=== PATIENT | male | born 1955 | race Hispanic/Latino ===

== ENCOUNTER 2020-01-10 11:04 | Inpatient (IN) | payer OTHER ==
[2020-01-10] MEDS ORDERED: Ondansetron PF 4 MG/2 ML Vial ONE (11:47)
[2020-01-10 11:50] LABS: #Lymphocytes 0.9 thou/uL (1.20-3.40); #Monocytes 0.8 thou/uL (0.11-0.59); #Neutrophils 12.4 thou/uL (1.40-6.50); %Basophils 0.1 % (0.0-1.0); %Eosinophils 0.1 % (0.0-10.0); %Lymphocytes 6.6 % (21.0-51.0); %Monocytes 5.9 % (0.0-10.0); %Neutrophils 87.3 % (42.0-75.0); Hemoglobin 15.9 g/dL (14.0-18.0); Mean Corpuscular HGB CONC 33.6 g/dL (32.0-36.0); Mean Corpuscular Hemoglobin 31.3 pg (27.0-31.0); Mean Corpuscular Volume 93.3 fL (78.0-98.0); Mean Platelet Volume 7.8 fL (7.4-10.4); Platelet Count 424 thou/uL (130-400); RBC Distribution Width 11.2 % (11.5-14.5); Red Blood Cell (RBC) Count 5.09 mill/uL (4.70-6.10); White Blood Cell (WBC) Count 14.2 thou/uL (4.8-10.8)
[2020-01-10 11:53] LABS: Bacteria/HPF None Seen HPF (None Seen); Bilirubin Negative (Negative); Blood, Urine Negative (Negative); Clarity Clear (Clear); Glucose, Urine (Dipstick) Normal (Negative); Ketone, Urine 150 mg/dL (Negative); Leukocyte Negative Leu/uL (Negative); Nitrite Negative (Negative); Protein, Urine (Dipstick) 50 mg/dL (Neg-Trace); RBC/HPF 0-3 HPF (0-3); Specific Gravity, Urine 1.031 (1.002-1.036); Squamous Epithelial 0-3 HPF (0-3); Urobilinogen 6 mg/dL (Less than 2)
[2020-01-10 12:07] LABS: ALT (SGPT) 20 U/L (8-55); AST (SGOT) 18 U/L (5-34); Albumin 4.8 g/dL (3.4-4.8); Alkaline Phosphatase 131 U/L (40-110); Anion Gap 19 mmol/L (10-20); BUN (Urea Nitrogen) 13 mg/dL (8.4-25.7); Calc. Creatinine Clearance 0 mL/min (70-130); Calcium 10.3 mg/dL (7.8-10.44); Carbon Dioxide 29 mmol/L (23-31); Chloride 100 mmol/L (98-107); Estimated GFR-MDRD 90; Globulin 3.8 g/dL (2.4-3.5); Glucose 132 mg/dL (80-115); Potassium 3.9 mmol/L (3.5-5.1); Protein, Total 8.6 g/dL (5.8-8.1); Sodium 144 mmol/L (136-145)
--- NOTE | 2020-01-10 13:35 | CT ---
CT ABDOMEN AND PELVIS WITH IV CONTRAST 01/10/2020 CLINICAL INFORMATION: Abdominal pain with nausea, vomiting, and diarrhea. Symptoms of been present for 2 weeks. COMPARISON: None. Technique: Multiple contiguous axial CT images are obtained through the abdomen and pelvis with IV contrast. Cor onal reformatted images are provided. FINDINGS: Lower Chest: Lung bases are clear. Vessels: Vascular calcifications in the abdominal aorta and iliac arteries. Abdomen: Portal vein:Patent Gallbladder: Suggestion of subtle creased density foci within the gallbladder neck which could be rel ated to sludge and/or gallbladder calculi. Liver: within normal limits. Spleen: Multiple splenic granulomata. Pancreas: within normal limits. Adrenals: within normal limits. Kidneys: A 1.7 cm fluid attenuation cystic lesion is seen inferior pole right kidney most compatible with a cyst. Kidneys otherwise demonstrate a normal CT appearance bilaterally. Bowel: There is colonic diverticulosis with short segment area of wall thickening involving the sigmo id colon with adjacent pericolonic inflammatory changes compatible with diverticulitis. There are adjacent multiple foci of free intraperitoneal gas seen in the region of the inflammatory changes sug gesting microperforation. There is no fluid collection seen to suggest an abscess. Loops of small bowel are normal in caliber. Small hiatal hernia is present. Appendix: The appendix is visualized and normal in caliber. Peritoneum: Free intraperitoneal foci of gas are seen adjacent to sigmoid colon. Minimal amount of fl uid is seen in the pelvis. Mesentery and Retroperitoneum: No enlarged mesenteric or retroperitoneal lymph nodes. Abdominal Wall: within normal limits. Pelvis: Reproductive Organs: Prostate gland is enlarged in transverse dimensions measuring 5.4 cm. Bladder: within normal limits. Bones: Degenerative changes in the spine. IMPRESSION: 1. Colonic diverticulitis with evidence of microperforation. No fluid collection is seen to suggest a bscess formation at this time. Follow-up evaluation is recommended to ensure resolution of bowel wall thickening involving the sigmoid colon. 2. Right renal cyst. 3. Small hiatal hernia. 4. Above findings discussed Dr. Lindsay in the emergency department on 01/10/2020 at 1331 hours.
[2020-01-10] MEDS ORDERED: metroNIDAZOLE 500 MG in Premix Bag 1 BAG IVPB SCH ×2 (14:00→22:00)
[2020-01-10] MEDS ORDERED: Iopamidol-370 76% 500 ML 1 ML ONE (15:27)
[2020-01-10] MEDS ORDERED: HYDROcodone/Acetaminophen 5/325 mg Tablet PO PRN ×2 (17:00)
[2020-01-10] MEDS ORDERED: Acetaminophen 325 MG TAB PO PRN (17:00)
[2020-01-10] MEDS ORDERED: Ondansetron ODT 4 MG TAB PO PRN (17:00)
[2020-01-10] MEDS ORDERED: Guaifenesin DM 100-10/5 ML UDCUP PO PRN (17:00)
[2020-01-10] MEDS ORDERED: Acetaminophen 650 MG Suppository PR PRN (17:00)
[2020-01-10] MEDS ORDERED: Senokot S 8.6-50 MG TAB PO PRN (17:00)
--- NOTE | 2020-01-10 17:12 | HP ---
PRIMARY CARE PHYSICIAN: [facility] in [place]. CHIEF COMPLAINT: Abdominal pain with nausea, vomiting, diarrhea. HISTORY OF PRESENT ILLNESS: This is a 64-year-old male without significant past medical history except for diverticulosis diagnosed on a previous colonoscopy, who presented to the emergency department complaining of some abdominal discomfort for the past month and then 2 weeks of worsening nausea, vomiting, diarrhea, and lower abdominal pain. The patient reports that any time he eats, he has episodes of nausea and vomiting, and he will have diarrhea. The diarrhea is usually not more than 2 or 3 times per day, small amount. Does have mucus in it, but no blood. Sometimes is more firm than others. He denies any fevers. No blood in the vomit. Yesterday, his vomiting got severely worse. He vomited more times than he could count and so today he came into the emergency room. In the ER, the patient had a CT scan done of the abdomen, which showed colonic diverticulitis with evidence of microperforation. No evidence of abscess formation. He was given oral Levaquin and metronidazole. Dr. Magaña, General Surgery was consulted by the ER doctor and the patient is being admitted to the hospital. REVIEW OF SYSTEMS: CONSTITUTIONAL: No fevers. No chills. EYES: No double vision or blurred vision. ENT: No congestion, drainage, or sore throat. He does have some burning in his throat though from the repetitive vomiting acid in the back of his throat. CARDIOVASCULAR: No chest pain. No palpitations or racing heart. PULMONARY: No coughing, wheezing, or shortness of breath. GASTROINTESTINAL: See HPI. GENITOURINARY: No current dysuria or hematuria. He did have a couple of episodes over the last 2 weeks of pain in his rectum when he would try and pee that has since resolved. He has noted some dark urine today. MUSCULOSKELETAL: No new muscle aches or joint pains. He does have some chronic low back pain. SKIN: No rashes or lesions noted. NEUROLOGIC: No numbness, tingling, or focal weakness. PAST MEDICAL HISTORY: None. PAST SURGICAL HISTORY: 1. Colonoscopy x2 with some polypectomies. 2. Umbilical hernia repair with mesh placement. 3. Surgical removal of a boil off his low back, upper buttock. SOCIAL HISTORY: The patient denies tobacco or alcohol use for the last 20 years. He did use to smoke and drink before that. He does report smoking a joint of marijuana about once every two weeks. The patient is and lives with his . He is a full code. Should he be incapacitated, his Edith Santana would be his medical decision maker. FAMILY HISTORY: Multiple family members of colon cancer. ALLERGIES: NO KNOWN DRUG ALLERGIES. CURRENT MEDICATIONS: None. PHYSICAL EXAMINATION: VITAL SIGNS: Blood pressure 116/59, pulse 87, respirations 16, temperature 98.3, O2 saturation 98% on room air. GENERAL: This is a well-developed obese, overweight male, in no acute distress. HEENT: Pupils are equal, round, and reactive to light. Oropharynx clear without lesions, erythema, or exudate. NECK: Supple. No lymphadenopathy. No thyroid nodules or enlargement. No JVD. HEART: Regular rate and rhythm. No murmurs, rubs, or gallops. LUNGS: Clear to auscultation bilaterally. No wheezes, crackles, or rhonchi. ABDOMEN: Soft, nontender to palpation currently. No hepatosplenomegaly. No other masses. No guarding or rebound tenderness. Normoactive bowel sounds. EXTREMITIES: No clubbing, cyanosis, or edema. SKIN: No rashes or lesions noted. NEUROLOGIC: The patient moves all extremities equally. No facial droop. PSYCHIATRIC: Alert and oriented x3. Normal mood and affect. LABORATORY DATA: White blood cell count 14,000 with 87% neutrophils, the rest of the CBC is normal except for platelet count of 424. Complete metabolic panel is notable for glucose of 132, alkaline phosphatase of 131, total protein of 8.6. The rest is normal. Lipase was negative. Troponin was negative. Urinalysis showed some ketones, 4 to 6 white blood cells, no bacteria. CT of the abdomen and pelvis done in the emergency room with IV contrast did show colonic diverticulitis with evidence of microperforation, but abscess of the right renal cyst, a small hiatal hernia. EKG done in the emergency room showed initially sinus tachycardia 105 beats per minute with premature atrial complexes, but no other significant abnormalities. ASSESSMENT: 1. Diverticulitis with microperforation. The patient is being given Levaquin and metronidazole. He is not currently n.p.o. for surgery as he will likely hopefully respond to IV antibiotic therapy. Dr. Magaña is following along with his case. We will admit him to the hospital and watch for improvement. 2. Persistent nausea and vomiting. We will give Zofran as needed. 3. Gastrointestinal prophylaxis. The patient is on Pepcid twice a day. 4. Deep venous thrombosis prophylaxis. We will put the patient on Lovenox while he is in the hospital. 5. Code status: The patient is a full code. Should he be incapacitated, his , Edith Santana will be his medical decision maker. Job ID: [id number]
[2020-01-10] MEDS: Sodium Chloride 0.9% 1,000 ML IV SCH (17:17)
--- NOTE | 2020-01-10 20:03 | PDOC.CONS ---
- Consultation Encounter Date: 01/10/20 Encounter Time: 19:56 Indication for consultation-diverticulitis with microperforation Chief complaint-I have not felt good for a week History of present illness the patient is a 54-year-old male who has been feeling ill with lower abdominal pain for the past week. He has never had pain like this before. The pain is situated in the lower abdomen slightly to the left-hand side. Can get up to 9 out of 10. It is constant and worse with retching/vomiting. Patient states that the pain became its worse yesterday. He believes that this was because he started vomiting and increased abdominal pressure made his pain worse. Currently, he major concern is the burning sensation in his throat from vomiting. He has been passing flatus. Has had some diarrhea for the last week or so. These are small amounts without blood. Patient stated he has a history of colonoscopy, last one approximately 10 years ago. There were polyps found at the time. Past medical history-denies Past surgical history-colonoscopy x2, umbilical hernia repair with mesh, incision and drainage of back abscess Allergies-none Medications-none Family history-multiple members with colon cancer Review of systems-negative for 10 system, two-point per system other than HPI [id number], appears uncomfortable in bed Head-[normocephalic, atraumatic] HEENT- [EOMI], [PERRLA] Neck-[trachea midline, supple] Lungs-[grossly clear to auscultation], [normal air movement] Heart-[regular regular], [no murmurs] Abdomen-[soft], [nondistended], [nontender], [normal active bowel sounds], some discomfort to deep palpation in the lower pelvis Musculosketal-[full range of motion], [no gross deformity] Psychiatric-[good insight, good judgment] Skin-[good turgor, no jaundice] Neuro- [GCS 15], [CN II-XII intact] Blood pressure 116/59, heart rate 87, temperature 98.3 White blood cell count-14, neutrophils 87% CT scan abdomen and pelvis-independently viewed the images, I read the radiologist interpretation, patient has a segment of colon generally in the lower abdomen that has some stranding around it with a few small blips of air. There is no evidence of abscess. Assessment-diverticulitis with microperforation-the patient has been started on Levaquin and Flagyl. His vital signs are still within the normal limits. His abdomen is soft on exam. At this point, I think continue with conservative management is prudent. For now, n.p.o. in order to decrease bulk through the c olon. Continue with IV fluid resuscitation. Continue with antibiotics. Check CBC in the morning. #2-nausea and vomiting-I think this is more likely a reaction to the inflammatory process within his abdomen. He is on Zofran. I will give him a GI cocktail and an effort to help him with the burning sensation from recent vomiting. This should resolve with time. Plan-conservative management per above. I discussed the next several days with him. Hopefully, we will be able to continue with conservative management and transition him to p.o. antibiotics in the next 24 to 48 hours. If not, we discussed to the different pathways to include re-CT scan to evaluate for abscess versus need to proceed to the operating room for a resection. Patient voices understanding.
[2020-01-10] MEDS: Ondansetron PF 4 MG/2 ML Vial IVP PRN (20:05)
[2020-01-10] MEDS ORDERED: FLU VACC QS2020-21(6MOS UP)/PF 60 MCG/0.5 ML SYRINGE IM ONE (21:00)
[2020-01-10] MEDS: Lidocaine 2% Viscous Solution 10 ML, Aluminum & Magnesium Hydroxide 30 ML SSW PRN (21:28)
[2020-01-10] MEDS: Famotidine 20 MG TAB PO SCH (21:29)
[2020-01-11] MEDS: metroNIDAZOLE 500 MG in Premix Bag 1 BAG IVPB SCH ×2 (00:54→08:13)
[2020-01-11 05:55] LABS: #Lymphocytes 0.8 thou/uL (1.20-3.40); #Monocytes 0.7 thou/uL (0.11-0.59); %Basophils 0.1 % (0.0-1.0); %Eosinophils 0.1 % (0.0-10.0); %Lymphocytes 7.8 % (21.0-51.0); %Monocytes 7.1 % (0.0-10.0); %Neutrophils 84.9 % (42.0-75.0); Hemoglobin 13.5 g/dL (14.0-18.0); Mean Corpuscular HGB CONC 33.5 g/dL (32.0-36.0); Mean Corpuscular Hemoglobin 31.8 pg (27.0-31.0); Mean Corpuscular Volume 94.9 fL (78.0-98.0); Mean Platelet Volume 7.8 fL (7.4-10.4); Platelet Count 280 thou/uL (130-400); RBC Distribution Width 11.1 % (11.5-14.5); Red Blood Cell (RBC) Count 4.25 mill/uL (4.70-6.10); White Blood Cell (WBC) Count 10.5 thou/uL (4.8-10.8)
[2020-01-11 06:08] LABS: Anion Gap 14 mmol/L (10-20); BUN (Urea Nitrogen) 10 mg/dL (8.4-25.7); Calc. Creatinine Clearance 104 mL/min (70-130); Calcium 8.9 mg/dL (7.8-10.44); Carbon Dioxide 26 mmol/L (23-31); Chloride 106 mmol/L (98-107); Estimated GFR-MDRD Greater than 90; Glucose 119 mg/dL (80-115); Potassium 3.8 mmol/L (3.5-5.1); Sodium 142 mmol/L (136-145)
[2020-01-11] MEDS: Sodium Chloride 0.9% 1,000 ML IV SCH ×3 (07:09→23:26)
[2020-01-11] MEDS: Famotidine 20 MG TAB PO SCH ×2 (08:13→20:19)
[2020-01-11] MEDS: Enoxaparin Sodium 40 MG/0.4 ML SYRINGE SC SCH (08:13)
[2020-01-11 09:27] VITALS: BMI 24.7
--- NOTE | 2020-01-11 11:49 | PDOC.GSPN ---
Surgery Progress Note: Subj - Subjective Narrative: Patient is hospital day 2 for diverticulitis with microperforation Chief complaint-I feel so much better today History of present illness-patient states that his abdominal pain has basically resolved. Originally, most of his concern was about reflux related discomfort. He was given a GI cocktail and this has resolved the issue. He continues to pass flatus. Ambulating around the room without difficulty. Hungry and thirsty. Review of systems-negative for 10 system, two-point per system other than HPI Surgery Progress Note: Obj - Vital signs Vital signs: Vital Signs - Most Recent Temp Pulse Resp BP Pulse Ox 98.8 F 69 16 128/79 98 01/11/20 08:12 01/11/20 08:12 01/11/20 08:12 01/11/20 08:12 01/11/20 08:12 - Physical Exam Additional exam: General-[no acute distress, well-nourished] Head-[normocephalic, atraumatic] HEENT- [EOMI], [PERRLA] Neck-[trachea midline, supple] Lungs-[grossly clear to auscultation], [normal air movement] Heart-[regular regular], [no murmurs] Abdomen-[soft], [nondistended], [nontender], [normal active bowel sounds] Musculosketal-[full range of motion], [no gross deformity] Psychiatric-[good insight, good judgment] Skin-[good turgor, no jaundice] Neuro- [GCS 15], [CN II-XII intact] Surgery Progress Note: Results - Labs Result Diagrams: 01/11/20 05:26 01/11/20 05:26 Lab results: Laboratory Results - last 12 hr 01/11/20 01/11/20 05:26 05:26 WBC 10.5 RBC 4.25 L Hgb 13.5 L Hct 40.4 L MCV 94.9 MCH 31.8 H MCHC 33.5 RDW 11.1 L Plt Count 280 MPV 7.8 Neutrophils % 84.9 H Lymphocytes % 7.8 L Monocytes % 7.1 Eosinophils % 0.1 Basophils % 0.1 Neutrophils # 9.0 H Lymphocytes # 0.8 L Monocytes # 0.7 H Eosinophils # 0.0 Basophils # 0.0 Sodium 142 Potassium 3.8 Chloride 106 Carbon Dioxide 26 Anion Gap 14 BUN 10 Creatinine 0.72 Estimated GFR (MDRD) Greater than 90 Glucose 119 H Calcium 8.9 Surgery Progress Note: A/P - Problem (1) Diverticulitis of colon with perforation Current Visit: Yes Code(s): K57.20 - DVTRCLI OF LG INT W PERFORATION AND ABSCESS W/O BLEEDING Status: Acute Assessment and Plan: Patient has been on Levaquin and Flagyl as well as remained n.p.o. overnight. He is doing well. His white blood cell count is normal. His vital signs are normal. His exam is reassuring. At this point, I will transition him over to p.o. antibiotics and start him on a clear liquid diet. Recheck CBC tomorrow morning. If he continues to do well, he may be discharged tomorrow on Flagyl and Levaquin. I discussed with him and his the concept of remaining on a low residual diet for the meantime. Eventually, after he sees me back in clinic, we can increase this to a high-fiber diet. His last colonoscopy was over 10 years ago, so he will need 1 of those. I can perform that in 6 weeks after his colon has had time to recover.
[2020-01-11 12:02] LABS: SARS-CoV-2 MS2 Positive; SARS-CoV-2 N Gene Negative; SARS-CoV-2 S Gene Negative; SARS-CoV-2 by NAA Not Detected (NotDetected); SARS-CoV-2 orf1ab Negative
[2020-01-11] MEDS: Ondansetron PF 4 MG/2 ML Vial IVP PRN (14:18)
[2020-01-11] MEDS: metroNIDAZOLE 500 MG TAB PO SCH ×2 (14:18→20:19)
--- NOTE | 2020-01-11 18:06 | PDOC.HOSPP ---
- Subjective Encounter Date: 01/11/20 Encounter Time: 12:00 Subjective: The patient had stated his abdominal pain had resolved this morning. He did not want to eat anything however, but agreed to try clear liquids. He drank juice and stated it made him nauseous, does not want to advance furt her. He is passing gas - Objective Vital Signs & Weight: Vital Signs (12 hours) Temp Pulse Resp BP Pulse Ox 01/11/20 18:03 98.8 F 109 H 18 145/87 H 97 01/11/20 13:13 97.4 F L 95 18 127/74 97 01/11/20 08:12 98.8 F 69 16 128/79 98 01/11/20 08:00 98 Weight Admit Weight 153 lb 14.112 oz Weight 162 lb 11.2 oz I&O: 01/10/20 01/11/20 01/12/20 06:59 06:59 06:59 Intake Total 1000 Balance 1000 Result Diagrams: 01/11/20 05:26 01/11/20 05:26 Hospitalist ROS - Review of Systems Constitutional: denies: fever, chills - Medication Medications: Active Medications Generic Name Dose Route Start Last Admin Trade Name Freq PRN Reason Stop Dose Admin Lidocaine HCl 10 ml/ Al 0 ml 01/10/20 19:55 01/10/20 21:28 Hydroxide/Mg Hydroxide 30 ml SSW 1 dose Q6H PRN Administration .REFLUX Enoxaparin Sodium 40 mg 01/11/20 09:00 01/11/20 08:13 Enoxaparin Sodium 40 Mg/0.4 Ml Syringe SC 40 mg 0900 ARSLAN Administration Famotidine 20 mg 01/10/20 21:00 01/11/20 08:13 Famotidine 20 Mg Tab PO 20 mg BID ARSLAN Administration Sodium Chloride 1,000 mls @ 75 mls/hr 01/10/20 17:00 01/11/20 08:14 Normal Saline 0.9% IV 1,000 mls .[id number] ARSLAN Administration Metronidazole 500 mg 01/11/20 15:00 01/11/20 14:18 Metronidazole 500 Mg Tab PO 500 mg TID ARSLAN Administration Ondansetron HCl 4 mg 01/10/20 17:00 01/11/20 14:18 Ondansetron Pf 4 Mg/2 Ml Vial IVP 4 mg Q6H PRN Administration Nausea/Vomiting - Exam General Appearance: NAD, awake alert Eye: PERRL, anicteric sclera ENT: normocephalic atraumatic, no oropharyngeal lesions Neck: no JVD Heart: RRR, no murmur, no gallops, no rubs Respiratory: CTAB, no wheezes, no rales, no ronchi Gastrointestinal: soft, non-distended, normal bowel sounds Gastrointestinal - other findings: mild tenderness in lower quadrants Extremities: no cyanosis, no clubbing, no edema Skin: normal turgor, no lesions, no rashes Neurological: cranial nerve grossly intact, normal sensation to touch, no focal deficits, no new deficit Hosp A/P - Plan CT abdomen: colonic diverticulitis with microperforation This is a 64 year old male who presented with abdominal pain, admitted for diverticulitis Diverticulitis - on IV levaquin and flagyl. Will continue for now. Advanced to clear liquid, did not tolerate it that well Mild elevated ALP - noted to be 131. Will recheck tomorrow Anemia - Hb 13.5, will monitor Leukocytosis - from diverticulitis - resolved. continue Iv antibiotics
[2020-01-11] MEDS: Lidocaine 2% Viscous Solution 10 ML, Aluminum & Magnesium Hydroxide 30 ML SSW PRN (20:20)
[2020-01-12] MEDS: Enoxaparin Sodium 40 MG/0.4 ML SYRINGE SC SCH (07:52)
[2020-01-12] MEDS: metroNIDAZOLE 500 MG TAB PO SCH ×2 (07:52→13:53)
[2020-01-12] MEDS: Famotidine 20 MG TAB PO SCH (07:52)
[2020-01-12] MEDS: Sodium Chloride 0.9% 1,000 ML IV SCH (07:52)
[2020-01-12] MEDS ORDERED: FLU VACC QS2020-21(6MOS UP)/PF 60 MCG/0.5 ML SYRINGE IM ONE (10:30)
[2020-01-12 14:52] LABS: ALT (SGPT) 19 U/L (8-55); AST (SGOT) 18 U/L (5-34); Albumin 3.8 g/dL (3.4-4.8); Alkaline Phosphatase 97 U/L (40-110); Bilirubin, Direct 0.4 mg/dL (0.1-0.3); Bilirubin, Total 0.7 mg/dL (0.2-1.2); Protein, Total 6.5 g/dL (5.8-8.1)
--- NOTE | 2020-01-12 15:05 | DIS ---
DATE OF ADMISSION: 01/10/2020 DATE OF DISCHARGE: 01/12/2020 DISCHARGE DIAGNOSES: 1. Diverticulitis with microperforation. 2. Right renal cyst. 3. Small hiatal hernia. 4. Leukocytosis. 5. Anemia, likely dilutional. 6. Elevated alkaline phosphatase. CONSULTATIONS: Dr. Chinedu Magaña with general surgery BRIEF HISTORY OF PRESENT ILLNESS: This is a 64-year-old male with no past medical history, who presented to the emergency room with abdominal discomfort for 2 weeks with nausea, vomiting, diarrhea. His vomiting was so severe that he came to the emergency room. The patient had a CAT scan, which showed colonic diverticulitis with evidence of microperforation. General Surgery was consulted. The patient was admitted to the hospital. HOSPITAL COURSE: 1. Acute diverticulitis with microperforation: The patient was initially started on IV Levaquin and Flagyl. His abdominal pain resolved. On 01/10, he was advanced to a clear liquid diet, however, had nausea with this. Therefore, he was monitored for one more day. On 01/11, he was switched to oral antibiotics and he tolerated a regular diet at the time of discharge. He denied any diarrhea. He will be discharged and was advised to follow up in [address] Magaña. He can be increased to a high-fiber diet at that time. The patient states his last colonoscopy was over 10 years ago and needs a repeat colonoscopy after this acute episode has resolved. 2. Anemia: The patient presented with hemoglobin 15.9, which decreased to 13.5. This may have been secondary to IV fluids. Please consider repeat CBC as an outpatient. 3. Transaminitis: The patient had an elevated alkaline phosphatase of 131. CT scan of the abdomen showed sludge versus gallbladder calculi. He did not have any right upper quadrant tenderness. Repeat LFTs on the day of discharge were normal. The patient tolerated a low-fiber diet at the time of discharge. Consider further workup as an outpatient. DISCHARGE PHYSICAL EXAMINATION: VITAL SIGNS: Temperature 98.4, heart rate of 68, respiratory rate 16, O2 saturation 96% on room air, and blood pressure 110/68. GENERAL: The patient is alert, awake, and oriented x3. CVS: Regular rate and rhythm with no murmurs, rubs, or gallops. LUNGS: Clear to auscultation bilaterally. ABDOMEN: Positive bowel sounds. Soft, nontender, and nondistended. EXTREMITIES: No edema. PERTINENT LABORATORY DATA: CBC on 01/10: White count 10.5, hemoglobin 13.5, hematocrit 40.4, and platelet count 280. BMP on 01/10: Normal. LFTs on 01/09: AST 18, ALT 20, ALP 131. LFTs on 01/11: Pending. UA on 01/09: 50 protein, 150 ketones, 6 urobilinogen, 4 to 6 white blood cells. COVID PCR on 01/09: Negative. IMAGING: CT abdomen and pelvis on 01/09: Colonic diverticulitis with evidence of microperforation. No abscess. Right renal cyst. Small hiatal hernia. DISCHARGE CONDITION: Stable. ACTIVITY: As tolerated. DIET: A low-fiber diet. DISCHARGE MEDICATIONS: 1. Flagyl 500 mg p.o. t.i.d. 2. Levaquin 750 mg p.o. daily. DISCHARGE INSTRUCTIONS: The patient is to follow up with his PCP in a week and get a repeat CBC to further evaluate resolution of anemia. Follow up with Dr. Magaña in 10 days and you can increase to a high-fiber diet at that time. Job ID: [id number] [facility]
[2020-01-12 15:38] VITALS: BP 121/73; TEMP 97.9
--- NOTE | 2020-01-12 16:58 | PDOC.GSPN ---
Surgery Progress Note: Subj - Subjective Narrative: Chief complaint-I feel better today History of present illness-patient states that his abdomen is pain-free. He is tolerating his diet without any difficulty. His reflux has improved. No nausea. Review of systems-no fevers or chills. Still having some loose stool. Passing flatus. Otherwise, 10 system, two-point per system negative other than HPI Surgery Progress Note: Obj - Vital signs Vital signs: Vital Signs - Most Recent Temp Pulse Resp BP Pulse Ox 97.9 F 80 20 121/73 98 01/12/20 15:38 01/12/20 15:38 01/12/20 15:38 01/12/20 15:38 01/12/20 15:38 - Physical Exam Additional exam: General-[no acute distress, well-nourished] Head-[normocephalic, atraumatic] HEENT- [EOMI], [PERRLA] Neck-[trachea midline, supple] Lungs-[grossly clear to auscultation], [normal air movement] Heart-[regular regular], [no murmurs] Abdomen-[soft], [nondistended], [nontender], [normal active bowel sounds] Musculosketal-[full range of motion], [no gross deformity] Psychiatric-[good insight, good judgment] Skin-[good turgor, no jaundice] Neuro- [GCS 15], [CN II-XII intact] Surgery Progress Note: Results - Labs Result Diagrams: 01/11/20 05:26 01/11/20 05:26 Lab results: Laboratory Results - last 12 hr 01/12/20 05:26 Total Bilirubin 0.7 Direct Bilirubin 0.4 H AST 18 ALT 19 Alkaline Phosphatase 97 Serum Total Protein 6.5 Albumin 3.8 Surgery Progress Note: A/P - Problem (1) Diverticulitis of colon with perforation Code(s): K57.20 - DVTRCLI OF LG INT W PERFORATION AND ABSCESS W/O BLEEDING Status: Acute Assessment and Plan: Patient is doing well with conservative management. He is remained afebrile on oral antibiotics. He is pain-free. His exam is encouraging. He has my business card and should follow-up with me in 2 weeks. Low residual diet for right now. I explained to him and his what this means. He should be sent home with Levaquin and Rosa. He may return to my clinic if he is having any difficulties
--- NOTE | 2020-01-15 06:44 | PQF ---
CLINICAL DOCUMENTATION CLARIFICATION FORM: Dear : Jayleen Woods Date / Time: 01/15/2020 0643 Please exercise your independent, professional judgment in responding to the clarification form. Clinical indicators are provided on the bottom of this form for your review Please check appropriate box(es): [ ] Protein Calorie Malnutrition: [ ] Mild [ ] Moderate [ X] Severe [ ] Other Malnutrition (please specify) [ ] Underweight without malnutrition [ ] Cachexia [ ] Other diagnosis [ ] Unable to determine In addition, please specify: Present on Admission (POA): [ X ] Yes [ ] No [ ] Unable to determine Physician Signature: Date/Time: For continuity of documentation, please document condition throughout progress notes and discharge summary. Thank You. To be completed by CDI/Coding staff for physician review: Present Clinical Indicators - Signs / Symptoms / Labs Results and Location in Medical Record [X] BP 146/73, Pulse 89, Resp 18, Temp 98.7 Vital signs 12/30 [X] Serum Evelyn protein 8.6, Albumin 4.8, Globulin 3.8, Ratio 1.3 Laboratory 12/30 [X] BMI of 24.7 Nutritional assessment Dietitian Hayden 01/10 [X] Weight loss Nutritional assessment Dietitian Hayden 01/10 [X] Persistent nause, vomiting and diarrhea Nutritional assessment Dietitian Hayden 01/10 [X] <50% energy intake compared to estimated energy needs for > 5 days with 16.8% wieght loss over the past 1 month, suggestive of severe malnutrition in the context of acute illness Nutritional assessment Dietitian Hayden 01/10 Present Risk Factors Results and Location in Medical Record [X] 64 year-old Male H&P p1 01/09 Dr Jeff [X] Former smoker H&P p1 01/09 Dr Jeff [X] Diveticulitis with microperforation H&P p1 01/09 Dr Jeff [X] Anemia H&P p1 01/09 Dr Jeff [X] Hiatal Hernia DS 01/11 Present Treatments Results and Location in Medical Record [X] Dietary consult Nutritional assessment Dietitian Hayden 01/10 [X] Nutritional supplements Nutritional assessment Dietitian Blake 01/10 [X] Weight monitoring Nutritional assessment Dietitian Blake 01/10 [X] Oral intake monitoring Nutritional assessment Dietitian Blake 01/10 [X] Appetite stimulant - medication Nutritional assessment Dietitian Blake 01/10 CDS/Mission Support Specialist Signature: Doreen Panico Phone #: [phone] Date/Time: 01/15/2020 0643 Moderate Malnutrition (in acute illness) ? Energy Intake: <75% of estimated energy requirement for > 7 days ? Weight Loss: 1-2%/1 week; 5%/ 1 month; 7.5%/3 months ? Other: mild body fat loss; mild muscle mass loss; mild fluid accumulation; Severe Malnutrition (in acute illness) ? Energy Intake: ? 50% of estimated energy requirement for ? 5 days ? Weight Loss: >2%/1 week; >5%/1 month; >7.5%/3 months ? Other: moderate body fat loss; moderate muscle mass loss; moderate- severe fluid accumulation; measurably reduced pattern illustrator strength Moderate Malnutrition (in chronic illness) ? Energy Intake: <75% of estimated energy requirement for ?1 month ? Weight Loss: 5%/1 month; 7.5%/3 months; 10%/6 months; 20%/1 year ? Other: mild body fat loss; mild muscle mass loss; mild fluid accumulation Severe Malnutrition (in chronic illness) ? Energy Intake: ?75% of estimated energy requirement for ?1 month ? Weight Loss: >5%/1 month; >7.5%/3 months; >10%/6 months; >20%/1 year ? Other: severe body fat loss; severe muscle mass loss; severe fluid accumulation; measurably reduced pattern illustrator strength This is a permanent part of the Medical Record [facility]
== END 2020-01-12 15:44 | disposition home or self-care (01) | DRG 391 ==
LOC: ERS 11:04 → T4-B 14:23
PROVIDERS: ADMIT Emergency Medicine; ATTEND Emergency Medicine
DX: K57.20 Diverticulitis of large intestine with perforation and abscess without bleeding (principal); E43 Unspecified severe protein-calorie malnutrition; N28.1 Cyst of kidney, acquired; K44.9 Diaphragmatic hernia without obstruction or gangrene; D64.9 Anemia, unspecified; R74.01 Elevation of levels of liver transaminase levels; Z20.828 Contact with and (suspected) exposure to other viral communicable diseases; Z86.010 Personal history of colon polyps; Z87.891 Personal history of nicotine dependence; Z23 Encounter for immunization; Z68.24 Body mass index [BMI] 24.0-24.9, adult
CPT/HCPCS: 36415; 74177; 80048; 80053; 80076; 81003; 81015; 83690; 84484; 85025; 87635; 90471; 90662; 93005; 96361; 96365; 96366; 96375; G0008; J1650; J1956; J2405; Q9967; U0003

== ENCOUNTER 2020-01-28 08:16 | Emergency (ER) | payer OTHER, SELFPAY ==
[2020-01-28 09:06] LABS: #Eosinphils 0.1 thou/uL (0.0-0.7); #Lymphocytes 1.2 thou/uL (1.20-3.40); #Monocytes 0.5 thou/uL (0.11-0.59); #Neutrophils 5.1 thou/uL (1.40-6.50); %Basophils 0.1 % (0.0-1.0); %Eosinophils 1.5 % (0.0-10.0); %Lymphocytes 17.6 % (21.0-51.0); %Monocytes 7.3 % (0.0-10.0); %Neutrophils 73.6 % (42.0-75.0); Hemoglobin 14.6 g/dL (14.0-18.0); Mean Corpuscular HGB CONC 34.9 g/dL (32.0-36.0); Mean Corpuscular Hemoglobin 32.7 pg (27.0-31.0); Mean Corpuscular Volume 93.7 fL (78.0-98.0); Mean Platelet Volume 7.7 fL (7.4-10.4); Platelet Count 287 thou/uL (130-400); RBC Distribution Width 11.5 % (11.5-14.5); Red Blood Cell (RBC) Count 4.48 mill/uL (4.70-6.10); White Blood Cell (WBC) Count 6.9 thou/uL (4.8-10.8)
[2020-01-28 09:28] LABS: ALT (SGPT) 21 U/L (8-55); AST (SGOT) 17 U/L (5-34); Albumin 4.3 g/dL (3.4-4.8); Alkaline Phosphatase 104 U/L (40-110); Anion Gap 15 mmol/L (10-20); BUN (Urea Nitrogen) 6 mg/dL (8.4-25.7); Bilirubin, Total 0.9 mg/dL (0.2-1.2); Calc. Creatinine Clearance 0 mL/min (70-130); Calcium 9.8 mg/dL (7.8-10.44); Carbon Dioxide 26 mmol/L (23-31); Chloride 102 mmol/L (98-107); Estimated GFR-MDRD Greater than 90; Globulin 3.2 g/dL (2.4-3.5); Glucose 114 mg/dL (80-115); Lipase 29 U/L (8-78); Potassium 4.1 mmol/L (3.5-5.1); Protein, Total 7.5 g/dL (5.8-8.1); Sodium 139 mmol/L (136-145)
--- NOTE | 2020-01-28 10:41 | PDOC.HHP ---
Hospitalist HPI - History of Present Illness Abdominal pain History of Present Illness: PCP; [facility] The patient is a 64-year-old male with past medical history significant for recent diagnosis of diverticulitis with microperforation that presents to the emergency department for the above complaint. The patient was recently discharged from our hospital on 01/12/2020 with diagnosis of diverticulitis with microperforation. The patient was given Levaquin and Flagyl by IV and dischar ged on oral Levaquin and Flagyl, along with a high-fiber diet. The patient reports that he completed the antibiotic regimen and has been eating canned fruits, cereal with almond milk, bananas, yogurt and Jell-O. The patient was to follow-up with general surgery tomorrow, which was Dr. Magaña. Patient reports over the past 2 days, having increased abdominal discomfort in his mid pelvic region. Describes the pain as sharp and stabbing, intermittent, exacerbated relieved by nothing. He denies any hemoptysis, nausea, vomiting, diarrhea. He does report mucoid-like residue on the toilet tissue after passing flatus. Denies any hematochezia or melena. He reports some dysuria, denies any urinary frequency, urgency or hematuria. He denies fever and chills. He denies any chest pain, heart palpitations, shortness of breath. He has no other complaints at this time. ED Course: VITAL SIGNS MonJan 28, 2020 08:19 AMAN Saenz Dannette BP: 131/79, Pulse: 85, Resp: 16, Temp: 98.3 (Oral), Pain: 0, O2 sat: 100 on (Room Air), Time: 01/28/2020 08:19. VITAL SIGNS MonJan 28, 2020 10:26 AMAN Moore Ashlee BP: 115/70, Pulse: 74, Resp: 16, Temp: 98.2 (Oral), Pain: 0, O2 sat: 98 on (Room Air), Time: 01/28/2020 10:26. Medication administration: Zosyn 4.5 g IV Piggy Back Ordered 10:29 01/28/2020 sodium chloride 0.9 % intravenous 1 L IV Fluid Infusion Ordered 10:28 01/28/2020 ondansetron HCl intravenous 4 mg IV Push Ordered 10:01/28/2020 morphine injection 4 mg IV Push Ordered 10:28 01/28/2020 Hospitalist ROS - Review of Systems All other systems reviewed; all pertinent +/- noted in HPI/Subj - Medication Medications: None Allergies: No known allergies Hospitalist History - Past Medical History Source: patient, RN notes reviewed Cardiac: reports: no pertinent history Pulmonary: reports: no pertinent history DISASTER RECOVERY COORDINATOR: reports: no pertinent history Gastrointestinal: reports: Other (Diverticulitis with microperforation) - Past Surgical History Past Surgical History: reports: Hernia Repair ( With mesh in place), Other (Boil removed) - Family History Other Family History: Noncontributory to this case - Social History Smoking Status: Never smoker Alcohol: reports: None Drugs: reports: none Living Situation: With Family Occupation: Retired Activity level: independent ambulation - Exam General Appearance: NAD, awake alert. negative: ill appearing Eye: anicteric sclera ENT: normocephalic atraumatic Neck: supple, symmetric Heart: RRR, no murmur, no gallops, no rubs Respiratory: CTAB, no wheezes, no rales, no ronchi, normal chest expansion, no tachypnea Gastrointestinal: soft, non-distended, normal bowel sounds, no bruit, no guarding, no rigidity, tender to palpation (Mildly tender to deep palpation of mid pubic region) Gastrointestinal - other findings: Negative Eddy sign Extremities: no cyanosis, no edema Skin: no rashes Neurological: no focal deficits Musculoskeletal: normal tone, normal strength Psychiatric: normal affect, A&O x 3 Hospitalist Results - Labs Result Diagrams: 01/28/20 08:46 01/28/20 08:46 Lab results: WBC 6.9 thou/uL (4.8-10.8) 01/28/20 08:46 Hgb 14.6 g/dL (14.0-18.0) 01/28/20 08:46 Hct 41.9 % (42.0-52.0) L 01/28/20 08:46 MCV 93.7 fL (78.0-98.0) 01/28/20 08:46 Plt Count 287 thou/uL (130-400) 01/28/20 08:46 Neutrophils % 73.6 % (42.0-75.0) 01/28/20 08:46 Sodium 139 mmol/L (136-145) 01/28/20 08:46 Potassium 4.1 mmol/L (3.5-5.1) 01/28/20 08:46 Chloride 102 mmol/L (98-107) 01/28/20 08:46 Carbon Dioxide 26 mmol/L (23-31) 01/28/20 08:46 BUN 6 mg/dL (8.4-25.7) L 01/28/20 08:46 Creatinine 0.77 mg/dL (0.7-1.3) 01/28/20 08:46 Glucose 114 mg/dL (80-115) 01/28/20 08:46 Lactic Acid 0.9 mmol/L (0.5-2.2) 01/28/20 09:11 Calcium 9.8 mg/dL (7.8-10.44) 01/28/20 08:46 Total Bilirubin 0.9 mg/dL (0.2-1.2) 01/28/20 08:46 AST 17 U/L (5-34) 01/28/20 08:46 ALT 21 U/L (8-55) 01/28/20 08:46 Alkaline Phosphatase 104 U/L (40-110) 01/28/20 08:46 Serum Total Protein 7.5 g/dL (5.8-8.1) 01/28/20 08:46 Albumin 4.3 g/dL (3.4-4.8) 01/28/20 08:46 Lipase 29 U/L (8-78) 01/28/20 08:46 - Radiology Interpretation CT scan - abdomen Status: report reviewed by me Additional Comment: 1. slow improvement of sigmoid diverticulitis. Small microperforation seen along the superior wall of the distal sigmoid colon is not long identified. No drainable fluid collection is evident. However there is some persistent wall thickening and pericolonic inflammatory stranding that appears somewhat similar to the comparison exam. 2. Stable right renal cyst, cholelithiasis, and findings of prior granulomatous disease. 3. Small, 1.6 cm, left-sided bladder stone. Hospitalist H&P A/P - Problem (1) Diverticulitis large intestine w/o perforation or abscess w/o bleeding Code(s): K57.32 - DVTRCLI OF LG INT W/O PERFORATION OR ABSCESS W/O BLEEDING Status: Acute (2) Dysuria Code(s): R30.0 - DYSURIA Status: Acute (3) Cholelithiasis Code(s): K80.20 - CALCULUS OF GALLBLADDER W/O CHOLECYSTITIS W/O OBSTRUCTION Status: Chronic - Plan Plan: 64/M with recent diagnosis diverticulitis presents for abdominal pain. Admit to medical, observation status. Expected length of stay less than 2 midnights. Presented stable vital signs. CT abdomen pelvis shows sigmoid inflammation, no abscess. WBC 6.9, LA 0.9 ER MD spoke with general surgery, Dr. Magaña, no surgical intervention. Can follow-up outpatient after IV antibiotics regimen. #Diverticulitis large intestine without perforation or abscess without bleeding. Continue Zosyn IVPB Clear liquid diet, advance as tolerated. Repeat BMP and CBC in a.m. #Dysuria Small, 1.6 cm stone, incidental finding on CT scan. UA and urine culture pending. #Cholelithiasis Nonobstructive, incidental finding on CT scan. No DVT prophylaxis. No GI prophylaxis. Full code. Discussed the case with Dr. Lomax.
--- NOTE | 2020-01-28 10:46 | CT ---
CT ABDOMEN AND PELVIS WITH IV CONTRAST: Date: 01/28/2020 INDICATION: History of diffuse abdominal pain and diverticulitis. COMPARISON: Prior exam dated 01/10/2020. FINDINGS: The lung bases demonstrate no acute infiltrate. The liver is within normal limits. There are multiple small gallstones within the gallbladder. The pancreas, adrenal glands, and spleen reveal no acute abnormality. Both kidneys appear within norm al limits. Mild ectasia of the abdominal aorta is stable. No enlarged lymph nodes or free fluid is evident. The wall thickening and pericolonic inflammatory stranding involving the sigmoid colon with scattered diverticula is largely stable. The small microperforation along the superior margin of the distal si gmoid colon has partially resorbed. No drainable fluid collection is evident. There is a moderate dg unt of retained stool. There is a normal appendix in the right lower quadrant. The prostate is enlarg ed. There is a new bladder stone in the posterolateral aspect of the bladder measuring approximately 1.6 cm. There is scattered degenerative and osteoarthritic change. No definite acute osseous abnormal ity is evident. IMPRESSION: 1. Slow improvement in the sigmoid diverticulitis. The small microperforation seen along the superio r wall of the distal sigmoid colon is no longer identified. No drainable fluid collection is evident. However, there is some persistent wall thickening and pericolonic inflammatory stranding that appear s somewhat similar to the comparison exam. 2. Stable right renal cyst, cholelithiasis, and findings of prior granulomatous disease. 3. Small, 1.6 cm, left-sided bladder stone. POS: BH
[2020-01-28] MEDS ORDERED: Iopamidol-370 76% 500 ML 1 ML ONE (10:47)
[2020-01-28] MEDS ORDERED: Morphine 4 MG/ML VIAL ONE (10:56)
[2020-01-28] MEDS ORDERED: Piperacillin/Tazobactam 4.5 GM VIAL ONE (10:56)
[2020-01-28] MEDS ORDERED: Ondansetron PF 4 MG/2 ML Vial ONE (10:56)
[2020-01-28] MEDS ORDERED: Ondansetron ODT 4 MG TAB PO PRN (10:57)
[2020-01-28] MEDS ORDERED: Ondansetron PF 4 MG/2 ML Vial IVP PRN (10:57)
[2020-01-28] MEDS ORDERED: Acetaminophen 325 MG TAB PO PRN (10:57)
[2020-01-28] MEDS ORDERED: Morphine 2 MG/ML VIAL SLOW IVP PRN (11:02)
[2020-01-28 13:07] LABS: Bacteria/HPF None Seen HPF (None Seen); Bilirubin Negative (Negative); Blood, Urine Negative (Negative); Clarity Clear (Clear); Glucose, Urine (Dipstick) Normal (Negative); Ketone, Urine Negative (Negative); Leukocyte Negative Leu/uL (Negative); Nitrite Negative (Negative); Protein, Urine (Dipstick) 30 mg/dL (Neg-Trace); RBC/HPF 0-3 HPF (0-3); Squamous Epithelial None Seen HPF (0-3); Urobilinogen Normal mg/dL (Less than 2); WBC/HPF 0-3 HPF (0-3)
[2020-01-28] MEDS ORDERED: Piperacillin/Tazobactam 3.375 GM in Sodium Chloride 0.9% 100 ML IVPB SCH (16:00)
[2020-01-28] MEDS ORDERED: Famotidine 20 MG TAB PO SCH (21:00)
[2020-01-28] MEDS ORDERED: Famotidine/PF 20 mg/2ml Vial SLOW IVP SCH (21:00)
[2020-01-29] MEDS ORDERED: Tamsulosin HCl 0.4 MG CAP PO SCH (09:00)
== END 2020-01-28 13:38 | disposition short-term general hospital (02) ==
LOC: ERS 08:16
DX: K57.32 Diverticulitis of large intestine without perforation or abscess without bleeding (principal)
CPT/HCPCS: 36415; 74177; 80053; 81001; 83605; 83690; 85025; 96365; 96375; J2270; J2405; J2543; Q9967

== ENCOUNTER 2021-03-02 15:28 | Outpatient (CLI) | payer MEDICARE ==
[2021-03-02 16:46] LABS: Bilirubin Neg (Negative); Blood, Urine 25 (Negative); Clarity Slightly Cloudy (Clear); Glucose, Urine (Dipstick) Normal (Negative); Ketone, Urine Negative (Negative); Leukocyte 500 (Negative); Mean Corpuscular HGB CONC 33.1 g/dL (32.0-36.0); Mean Corpuscular Hemoglobin 31.1 pg (27.0-33.0); Mean Platelet Volume 9.9 fl (7.4-10.4); Nitrite Positive (Negative); Platelet Count 305 10x3/uL (150-450); Protein, Urine (Dipstick) 15 mg/dl (Neg-Trace); RBC Distribution Width 11.6 % (11.5-14.5); Specific Gravity, Urine 1.015 (1.002-1.036); Urobilinogen Normal mg/dL (Less than 2); White Blood Cell (WBC) Count 8.9 10x3/uL (3.5-10.5); pH, Urine 6.5 (5.0-9.0)
[2021-03-02 17:07] LABS: Anion Gap 14 mmol/L (10-20); BUN (Urea Nitrogen) 8 mg/dL (8.4-25.7); Calc. Creatinine Clearance 0 mL/min (70-130); Calcium 9.4 mg/dL (7.8-10.44); Carbon Dioxide 26 mmol/L (23-31); Chloride 102 mmol/L (98-107); Glucose 92 mg/dL (80-115); Potassium 4.1 mmol/L (3.5-5.1); Sodium 138 mmol/L (136-145)
[2021-03-02 17:30] LABS: Bacteria/HPF 3+ HPF (None Seen); RBC/HPF 0-3 HPF (0-3); Squamous Epithelial 0-3 HPF (0-3); WBC/HPF 21-50 HPF (0-3)
[2021-03-03 16:23] LABS: SARS-CoV-2 PCR by NAA Not Detected (NotDetected)
== END 2021-03-02 15:29 | disposition home or self-care (01) ==
LOC: LABBT 15:28
PROVIDERS: ATTEND Urology
DX: Z01.818 Encounter for other preprocedural examination (principal); Z20.822 Contact with and (suspected) exposure to COVID-19
CPT/HCPCS: 80048; 81001; 85027; 87086; U0003; U0005; 87077; 87186; 93005; 93010

== ENCOUNTER 2021-03-05 11:00 | Observation (INO) | payer MEDICARE ==
[2021-03-05] MEDS ORDERED: Levofloxacin 500 mg/D5W 100 ml Premix Bag ONE (11:37)
[2021-03-05] MEDS ORDERED: Fentanyl 100 MCG/2 ML VIAL ONE ×2 (12:11→13:04)
[2021-03-05] MEDS ORDERED: Metoprolol Tartrate 5 MG/5 ML VIAL ONE (12:32)
[2021-03-05] MEDS ORDERED: PROPOFOL 200 MG/20 ML VIAL ONE (12:32)
[2021-03-05] MEDS ORDERED: Ondansetron PF 4 MG/2 ML Vial ONE (12:32)
[2021-03-05] MEDS ORDERED: Dexamethasone 20 MG/5 ML VIAL ONE (12:32)
[2021-03-05] MEDS ORDERED: Lidocaine 1% PF 5 ML VIAL ONE (12:32)
[2021-03-05] MEDS ORDERED: Phenylephrine 10 MG/ML VIAL ONE (12:32)
[2021-03-05] MEDS ORDERED: Phenazopyridine HCl 100 MG TAB ONE (14:14)
[2021-03-05] MEDS ORDERED: Ketorolac Tromethamine 30 MG/ML VIAL ONE (14:14)
[2021-03-05] MEDS ORDERED: Oxybutynin 5 MG TAB ONE (14:15)
[2021-03-05] MEDS ORDERED: Amiodarone 450 MG, Admixture Fee 1 EACH in Dextrose 5% in Water 250 ML IVPB SCH (15:00)
[2021-03-05] MEDS: Amiodarone 450 MG in Dextrose 5% in Water 250 ML IVPB SCH ×2 (15:20→21:26)
[2021-03-05] MEDS ORDERED: Hyoscyamine Sulfate SL 0.125 mg Tablet SL PRN (15:23)
[2021-03-05] MEDS ORDERED: diphenhydrAMINE 50 MG/ML VIAL IVP PRN (15:23)
[2021-03-05] MEDS ORDERED: Zolpidem Tartrate 5 MG TAB PO PRN (15:23)
[2021-03-05] MEDS ORDERED: Ketorolac Tromethamine 30 MG/ML VIAL IVP PRN (15:23)
[2021-03-05] MEDS ORDERED: Ondansetron PF 4 MG/2 ML Vial IVP PRN (15:23)
[2021-03-05] MEDS ORDERED: Oxybutynin 5 MG TAB PO PRN (16:11)
[2021-03-05] MEDS ORDERED: Mag-Al 1200 mg/1200 mg/30 ML UDCUP PO PRN (16:11)
[2021-03-05] MEDS ORDERED: HYDROcodone/Acetaminophen 5/325 mg Tablet PO PRN ×2 (16:11)
[2021-03-05] MEDS ORDERED: Phenazopyridine HCl 97.5 MG TABLET PO PRN (16:11)
[2021-03-05] MEDS ORDERED: hydrALAZINE 20 MG/ML VIAL SLOW IVP PRN ×2 (16:12)
[2021-03-05 16:53] LABS: #Lymphocytes 0.6 thou/uL (1.20-3.40); #Monocytes 0.2 thou/uL (0.11-0.59); #Neutrophils 11.4 thou/uL (1.40-6.50); %Basophils 0.2 % (0.0-1.0); %Eosinophils 0.1 % (0.0-10.0); %Lymphocytes 4.9 % (21.0-51.0); %Monocytes 1.2 % (0.0-10.0); %Neutrophils 93.5 % (42.0-75.0); Hemoglobin 14.8 g/dL (14.0-18.0); Mean Corpuscular HGB CONC 34.8 g/dL (32.0-36.0); Mean Corpuscular Hemoglobin 33.4 pg (27.0-31.0); Mean Platelet Volume 7.2 fL (7.4-10.4); Platelet Count 248 thou/uL (130-400); RBC Distribution Width 11.1 % (11.5-14.5); Red Blood Cell (RBC) Count 4.44 mill/uL (4.70-6.10); White Blood Cell (WBC) Count 12.1 thou/uL (4.8-10.8)
[2021-03-05 17:19] LABS: ALT (SGPT) 14 U/L (8-55); AST (SGOT) 16 U/L (5-34); Albumin 4.1 g/dL (3.4-4.8); Alkaline Phosphatase 106 U/L (40-110); Anion Gap 10 mmol/L (10-20); BUN (Urea Nitrogen) 7 mg/dL (8.4-25.7); Bilirubin, Total 0.9 mg/dL (0.2-1.2); Calc. Creatinine Clearance 102 mL/min (70-130); Calcium 9.4 mg/dL (7.8-10.44); Carbon Dioxide 27 mmol/L (23-31); Chloride 104 mmol/L (98-107); Glucose 171 mg/dL (80-115); Potassium 4.1 mmol/L (3.5-5.1); Protein, Total 7.1 g/dL (5.8-8.1); Sodium 137 mmol/L (136-145)
[2021-03-05 17:34] LABS: Free T4 (Free Thyroxine) 1.13 ng/dL (0.70-1.48); Thyroid Stimulating Hormone 0.2522 uIU/mL (0.35-4.94)
[2021-03-05 18:40] VITALS: BMI 26.0
[2021-03-05] MEDS: Docusate 100 MG CAP PO SCH (21:25)
[2021-03-05] MEDS: Famotidine/PF 20 mg/2ml Vial SLOW IVP SCH (21:25)
[2021-03-06] MEDS: Acetaminophen 500 MG TAB PO PRN ×2 (01:51→09:54)
[2021-03-06 04:46] LABS: #Monocytes 0.7 thou/uL (0.11-0.59); #Neutrophils 9.2 thou/uL (1.40-6.50); %Basophils 0.1 % (0.0-1.0); %Eosinophils 0.3 % (0.0-10.0); %Lymphocytes 9.2 % (21.0-51.0); %Monocytes 6.1 % (0.0-10.0); %Neutrophils 84.3 % (42.0-75.0); Hemoglobin 13.1 g/dL (14.0-18.0); Mean Corpuscular HGB CONC 34.4 g/dL (32.0-36.0); Mean Corpuscular Hemoglobin 33.1 pg (27.0-31.0); Mean Corpuscular Volume 96.4 fL (78.0-98.0); Mean Platelet Volume 7.3 fL (7.4-10.4); Platelet Count 262 thou/uL (130-400); RBC Distribution Width 11.1 % (11.5-14.5); Red Blood Cell (RBC) Count 3.95 mill/uL (4.70-6.10); White Blood Cell (WBC) Count 10.9 thou/uL (4.8-10.8)
[2021-03-06 05:15] LABS: ALT (SGPT) 12 U/L (8-55); AST (SGOT) 13 U/L (5-34); Albumin 3.7 g/dL (3.4-4.8); Alkaline Phosphatase 93 U/L (40-110); Anion Gap 13 mmol/L (10-20); BUN (Urea Nitrogen) 8 mg/dL (8.4-25.7); Bilirubin, Total 0.9 mg/dL (0.2-1.2); Calc. Creatinine Clearance 107 mL/min (70-130); Carbon Dioxide 24 mmol/L (23-31); Chloride 104 mmol/L (98-107); Globulin 2.6 g/dL (2.4-3.5); Glucose 109 mg/dL (80-115); Potassium 4.1 mmol/L (3.5-5.1); Protein, Total 6.3 g/dL (5.8-8.1); Sodium 137 mmol/L (136-145)
[2021-03-06] MEDS: Docusate 100 MG CAP PO SCH (08:06)
[2021-03-06] MEDS: Famotidine/PF 20 mg/2ml Vial SLOW IVP SCH (08:06)
[2021-03-06] MEDS ORDERED: Tamsulosin HCl 0.4 MG CAP PO SCH (09:00)
[2021-03-06] MEDS ORDERED: Atorvastatin Calcium 10 MG TAB PO SCH (09:00)
[2021-03-06 12:33] VITALS: BP 107/64; TEMP 97.9
== END 2021-03-06 17:11 | disposition home or self-care (01) ==
LOC: SDC 11:00 → 2NO 15:13
PROVIDERS: ADMIT Urology; ATTEND Urology
PROC: 0VT08ZZ Resection of Prostate, Via Natural or Artificial Opening Endoscopic (ICD-10-PCS; principal; 2021-03-05)
DX: N40.1 Benign prostatic hyperplasia with lower urinary tract symptoms (principal); N32.89 Other specified disorders of bladder; N21.0 Calculus in bladder; I48.91 Unspecified atrial fibrillation; R33.8 Other retention of urine; R39.16 Straining to void; R39.15 Urgency of urination; R39.12 Poor urinary stream; R35.0 Frequency of micturition; E78.1 Pure hyperglyceridemia; G89.29 Other chronic pain; M54.9 Dorsalgia, unspecified; G47.00 Insomnia, unspecified; I08.3 Combined rheumatic disorders of mitral, aortic and tricuspid valves; Z87.891 Personal history of nicotine dependence; Z79.899 Other long term (current) drug therapy
CPT/HCPCS: 36415; 80053; 83880; 84439; 84443; 84484; 85025; 88305; 93005; 93010; 93306; 96374; 96375; 96376; G0378; J0282; J1100; J1885; J1956; J2370; J2405; J2704; J3010; J7070; S0028

== ENCOUNTER 2021-04-20 09:28 | Outpatient (CLI) | payer MEDICARE | END 2021-04-20 09:29 | disposition home or self-care (01) | LOC: BICULT 09:28 | PROVIDERS: ATTEND Family Medicine Sports Medicine | DX: Z13.6 Encounter for screening for cardiovascular disorders (principal) | CPT/HCPCS: 76775 ==

== ENCOUNTER 2022-06-26 09:17 | Inpatient (IN) | payer MEDICARE, OTHER ==
[2022-06-26 09:43] LABS: Bacteria/HPF 3+ HPF (None Seen); Bilirubin 1+ (Negative); Blood, Urine 2+ (Negative); Clarity Turbid (Clear); Glucose, Urine (Dipstick) Normal (Negative); Ketone, Urine 80 mg/dL (Negative); Leukocyte 500 Leu/uL (Negative); Nitrite Negative (Negative); Protein, Urine (Dipstick) 200 mg/dL (Neg-Trace); RBC/HPF 21-50 HPF (0-3); Specific Gravity, Urine 1.033 (1.002-1.036); Squamous Epithelial 0-3 HPF (0-3); Urobilinogen 3 mg/dL (Less than 2); WBC/HPF Greater than 50 HPF (0-3)
[2022-06-26 09:44] LABS: Hemoglobin 15.4 g/dL (14.0-18.0); Mean Corpuscular HGB CONC 33.5 g/dL (32.0-36.0); Mean Corpuscular Hemoglobin 32.6 pg (27.0-31.0); Mean Corpuscular Volume 97.3 fl (78.0-98.0); Mean Platelet Volume 8.3 fL (7.4-10.4); Platelet Count 251 10x3/uL (130-400); RBC Distribution Width 11.2 % (11.5-14.5); Red Blood Cell (RBC) Count 4.73 mill/uL (4.70-6.10); White Blood Cell (WBC) Count 21.2 10x3/uL (4.8-10.8)
[2022-06-26] MEDS ORDERED: Cefepime 2 GM VIAL ONE (09:54)
[2022-06-26] MEDS ORDERED: Labetalol HCl 100 MG/20 ML VIAL ONE (09:54)
[2022-06-26] MEDS ORDERED: Vancomycin 1 GM/200 ML (FROZEN) BAG ONE (09:54)
[2022-06-26] MEDS ORDERED: Sodium Chloride 0.9% 100 ML ONE (09:55)
[2022-06-26] MEDS ORDERED: Acetaminophen 500 MG TAB ONE (10:03)
[2022-06-26 10:04] LABS: ALT (SGPT) 15 U/L (8-55); AST (SGOT) 17 U/L (5-34); Albumin 4.8 g/dL (3.4-4.8); Alkaline Phosphatase 105 U/L (40-110); Anion Gap 14 mmol/L (10-20); BUN (Urea Nitrogen) 11 mg/dL (8.4-25.7); Bilirubin, Total 1.7 mg/dL (0.2-1.2); Calc. Creatinine Clearance 0 mL/min (70-130); Calcium 9.7 mg/dL (7.8-10.44); Carbon Dioxide 26 mmol/L (23-31); Chloride 100 mmol/L (98-107); Estimated GFR 94; Globulin 3.6 g/dL (2.4-3.5); Glucose 122 mg/dL (80-115); Lipase 25 U/L (8-78); Potassium 4.3 mmol/L (3.5-5.1); Protein, Total 8.4 g/dL (5.8-8.1); Sodium 136 mmol/L (136-145)
[2022-06-26 10:17] LABS: Band 5 % (5-11); Lymphocytes 2 % (21-51); MDiff Complete? YES; Monocytes 1 % (0-10); Neutrophil 91 % (42-75); Platelet Morphology Comment Appears Adequate; RBC Morphology Normal; Reactive Lymphocytes 1 % (0-10)
[2022-06-26] MEDS ORDERED: Digoxin 0.5 MG/2 ML AMP ONE (11:24)
[2022-06-26 13:47] LABS: Troponin I Less than 0.010 ng/mL (< 0.028)
[2022-06-26] MEDS ORDERED: Iopamidol-370 76% 500 ML MDV (1 ML CHARGE) ONE (14:00)
[2022-06-26 14:18] VITALS: BMI 26.6
[2022-06-26] MEDS ORDERED: HYDROcodone/Acetaminophen 5/325 mg Tablet PO PRN (15:04)
[2022-06-26] MEDS ORDERED: Acetaminophen 325 MG TAB PO PRN (15:04)
[2022-06-26] MEDS ORDERED: Ondansetron PF 4 MG/2 ML Vial IVP PRN (15:04)
[2022-06-26] MEDS ORDERED: Piperacillin/Tazobactam 3.375 GM in Sodium Chloride 0.9% 100 ML IVPB SCH (16:00)
[2022-06-26 16:42] LABS: Troponin I Less than 0.010 ng/mL (< 0.028)
[2022-06-26 17:04] LABS: Lactic Acid 1.4 mmol/L (0.5-2.2)
[2022-06-26] MEDS ORDERED: Diltiazem 125 MG/25 ML SDV ONE (17:11)
[2022-06-26] MEDS: Sodium Chloride 0.9% 1,000 ML IV SCH (18:04)
[2022-06-26] MEDS: Piperacillin/Tazobactam 3.375 GM in Sodium Chloride 0.9% 100 ML IVPB SCH (20:25)
[2022-06-26] MEDS: Diltiazem 125 MG in Sodium Chloride 0.9% 100 ML IVPB SCH (20:25)
[2022-06-27] MEDS: Sodium Chloride 0.9% 1,000 ML IV SCH ×2 (04:16→11:41)
[2022-06-27] MEDS: Piperacillin/Tazobactam 3.375 GM in Sodium Chloride 0.9% 100 ML IVPB SCH ×3 (04:16→20:44)
[2022-06-27] MEDS: Diltiazem 125 MG in Sodium Chloride 0.9% 100 ML IVPB SCH (05:22)
[2022-06-27 08:46] LABS: #Lymphocytes 0.6 thou/uL (1.20-3.40); #Monocytes 0.4 thou/uL (0.11-0.59); #Neutrophils 6.4 thou/uL (1.40-6.50); %Basophils 0.1 % (0.0-1.0); %Eosinophils 0.2 % (0.0-10.0); %Lymphocytes 7.5 % (21.0-51.0); %Monocytes 5.3 % (0.0-10.0); %Neutrophils 86.8 % (42.0-75.0); Hemoglobin 12.3 g/dL (14.0-18.0); Mean Corpuscular HGB CONC 31.9 g/dL (32.0-36.0); Mean Corpuscular Hemoglobin 31.3 pg (27.0-31.0); Mean Corpuscular Volume 97.9 fl (78.0-98.0); Mean Platelet Volume 8.3 fL (7.4-10.4); Platelet Count 183 10x3/uL (130-400); Red Blood Cell (RBC) Count 3.93 mill/uL (4.70-6.10); White Blood Cell (WBC) Count 7.3 10x3/uL (4.8-10.8)
[2022-06-27 08:53] LABS: Anion Gap 11 mmol/L (10-20); BUN (Urea Nitrogen) 7 mg/dL (8.4-25.7); Calc. Creatinine Clearance 108 mL/min (70-130); Calcium 8.4 mg/dL (7.8-10.44); Carbon Dioxide 21 mmol/L (23-31); Chloride 105 mmol/L (98-107); Estimated GFR 103; Glucose 107 mg/dL (80-115); Potassium 3.6 mmol/L (3.5-5.1); Sodium 133 mmol/L (136-145)
[2022-06-27] MEDS: Amiodarone 450 MG in Dextrose 5% in Water 250 ML IVPB SCH (20:44)
[2022-06-28 04:13] LABS: #Lymphocytes 0.5 thou/uL (1.20-3.40); #Monocytes 0.4 thou/uL (0.11-0.59); #Neutrophils 3.9 thou/uL (1.40-6.50); %Basophils 0.6 % (0.0-1.0); %Eosinophils 0.5 % (0.0-10.0); %Lymphocytes 10.3 % (21.0-51.0); %Monocytes 8.6 % (0.0-10.0); Hemoglobin 12.4 g/dL (14.0-18.0); Mean Corpuscular HGB CONC 34.6 g/dL (32.0-36.0); Mean Corpuscular Hemoglobin 33.3 pg (27.0-31.0); Mean Corpuscular Volume 96.2 fl (78.0-98.0); Mean Platelet Volume 8.4 fL (7.4-10.4); Platelet Count 187 10x3/uL (130-400); Red Blood Cell (RBC) Count 3.71 mill/uL (4.70-6.10); White Blood Cell (WBC) Count 4.8 10x3/uL (4.8-10.8)
[2022-06-28 04:30] LABS: Anion Gap 12 mmol/L (10-20); BUN (Urea Nitrogen) 5 mg/dL (8.4-25.7); Calc. Creatinine Clearance 115 mL/min (70-130); Calcium 8.3 mg/dL (7.8-10.44); Carbon Dioxide 20 mmol/L (23-31); Chloride 105 mmol/L (98-107); Estimated GFR 105; Glucose 111 mg/dL (80-115); Potassium 3.4 mmol/L (3.5-5.1); Sodium 134 mmol/L (136-145)
[2022-06-28] MEDS: Piperacillin/Tazobactam 3.375 GM in Sodium Chloride 0.9% 100 ML IVPB SCH ×3 (04:54→20:17)
[2022-06-28] MEDS: Sodium Chloride 0.9% 1,000 ML IV SCH ×2 (05:05→11:27)
[2022-06-28] MEDS ORDERED: Electrolyte Replacement Protocol FS PRN (12:15)
[2022-06-28] MEDS ORDERED: Potassium Chloride 20 MEQ TAB PO SCH (12:30)
[2022-06-28] MEDS: Amiodarone 450 MG in Dextrose 5% in Water 250 ML IVPB SCH (13:10)
[2022-06-28] MEDS: Metoprolol Tartrate 25 MG TAB PO SCH (20:16)
[2022-06-29] MEDS: Piperacillin/Tazobactam 3.375 GM in Sodium Chloride 0.9% 100 ML IVPB SCH ×3 (03:35→19:58)
[2022-06-29] MEDS: Amiodarone 450 MG in Dextrose 5% in Water 250 ML IVPB SCH ×2 (03:36→20:02)
[2022-06-29 04:48] LABS: #Eosinphils 0.1 thou/uL (0.0-0.7); #Lymphocytes 0.7 thou/uL (1.20-3.40); #Monocytes 0.5 thou/uL (0.11-0.59); #Neutrophils 3.7 thou/uL (1.40-6.50); %Basophils 0.1 % (0.0-1.0); %Eosinophils 2.4 % (0.0-10.0); %Lymphocytes 13.9 % (21.0-51.0); %Monocytes 9.8 % (0.0-10.0); %Neutrophils 73.7 % (42.0-75.0); Hemoglobin 13.3 g/dL (14.0-18.0); Mean Corpuscular HGB CONC 34.2 g/dL (32.0-36.0); Mean Corpuscular Hemoglobin 32.6 pg (27.0-31.0); Mean Corpuscular Volume 95.3 fl (78.0-98.0); Mean Platelet Volume 8.7 fL (7.4-10.4); Platelet Count 227 10x3/uL (130-400); Red Blood Cell (RBC) Count 4.08 mill/uL (4.70-6.10)
[2022-06-29 05:04] LABS: Anion Gap 14 mmol/L (10-20); BUN (Urea Nitrogen) 4 mg/dL (8.4-25.7); Calc. Creatinine Clearance 102 mL/min (70-130); Calcium 8.7 mg/dL (7.8-10.44); Carbon Dioxide 23 mmol/L (23-31); Chloride 103 mmol/L (98-107); Estimated GFR 102; Glucose 100 mg/dL (80-115); Potassium 3.5 mmol/L (3.5-5.1); Sodium 136 mmol/L (136-145)
[2022-06-29] MEDS: Metoprolol Tartrate 25 MG TAB PO SCH ×2 (10:06→19:59)
[2022-06-29] MEDS ORDERED: Digoxin 0.25 MG TAB PO SCH (17:30)
[2022-06-30] MEDS: Piperacillin/Tazobactam 3.375 GM in Sodium Chloride 0.9% 100 ML IVPB SCH ×3 (04:18→20:11)
[2022-06-30 04:49] LABS: #Eosinphils 0.2 thou/uL (0.0-0.7); #Monocytes 0.8 thou/uL (0.11-0.59); #Neutrophils 4.2 thou/uL (1.40-6.50); %Basophils 0.6 % (0.0-1.0); %Eosinophils 3.1 % (0.0-10.0); %Lymphocytes 16.1 % (21.0-51.0); %Monocytes 12.3 % (0.0-10.0); %Neutrophils 67.9 % (42.0-75.0); Hemoglobin 13.6 g/dL (14.0-18.0); Mean Corpuscular HGB CONC 33.5 g/dL (32.0-36.0); Mean Corpuscular Hemoglobin 32.2 pg (27.0-31.0); Mean Corpuscular Volume 95.9 fl (78.0-98.0); Mean Platelet Volume 8.3 fL (7.4-10.4); Platelet Count 247 10x3/uL (130-400); Red Blood Cell (RBC) Count 4.24 mill/uL (4.70-6.10); White Blood Cell (WBC) Count 6.1 10x3/uL (4.8-10.8)
[2022-06-30 05:12] LABS: Anion Gap 13 mmol/L (10-20); BUN (Urea Nitrogen) 6 mg/dL (8.4-25.7); Calc. Creatinine Clearance 89 mL/min (70-130); Calcium 8.8 mg/dL (7.8-10.44); Carbon Dioxide 24 mmol/L (23-31); Chloride 104 mmol/L (98-107); Estimated GFR 98; Glucose 94 mg/dL (80-115); Potassium 3.7 mmol/L (3.5-5.1); Sodium 137 mmol/L (136-145)
[2022-06-30] MEDS ORDERED: Digoxin 0.125 MG TAB PO SCH (09:00)
[2022-06-30] MEDS: Metoprolol Tartrate 25 MG TAB PO SCH ×2 (10:51→20:11)
[2022-06-30] MEDS: Amiodarone 450 MG in Dextrose 5% in Water 250 ML IVPB SCH (11:38)
[2022-07-01] MEDS: Amiodarone 450 MG in Dextrose 5% in Water 250 ML IVPB SCH ×2 (03:12→16:30)
[2022-07-01] MEDS: Piperacillin/Tazobactam 3.375 GM in Sodium Chloride 0.9% 100 ML IVPB SCH ×3 (04:03→20:19)
[2022-07-01 05:00] LABS: #Eosinphils 0.2 thou/uL (0.0-0.7); #Lymphocytes 0.9 thou/uL (1.20-3.40); #Monocytes 0.5 thou/uL (0.11-0.59); #Neutrophils 4.2 thou/uL (1.40-6.50); %Basophils 0.3 % (0.0-1.0); %Eosinophils 3.6 % (0.0-10.0); %Lymphocytes 15.3 % (21.0-51.0); %Monocytes 8.9 % (0.0-10.0); %Neutrophils 71.9 % (42.0-75.0); Hemoglobin 13.3 g/dL (14.0-18.0); Mean Corpuscular Hemoglobin 32.3 pg (27.0-31.0); Mean Platelet Volume 8.4 fL (7.4-10.4); Platelet Count 247 10x3/uL (130-400); RBC Distribution Width 11.2 % (11.5-14.5); Red Blood Cell (RBC) Count 4.12 mill/uL (4.70-6.10); White Blood Cell (WBC) Count 5.8 10x3/uL (4.8-10.8)
[2022-07-01 05:30] LABS: Anion Gap 16 mmol/L (10-20); BUN (Urea Nitrogen) 6 mg/dL (8.4-25.7); Calc. Creatinine Clearance 106 mL/min (70-130); Calcium 8.8 mg/dL (7.8-10.44); Carbon Dioxide 20 mmol/L (23-31); Chloride 105 mmol/L (98-107); Estimated GFR 103; Glucose 93 mg/dL (80-115); Potassium 3.5 mmol/L (3.5-5.1); Sodium 137 mmol/L (136-145)
[2022-07-01] MEDS: Metoprolol Tartrate 25 MG TAB PO SCH ×2 (07:42→20:18)
[2022-07-01] MEDS: Digoxin 0.25 MG TAB PO SCH (07:42)
[2022-07-01] MEDS ORDERED: Potassium Chloride 20 MEQ TAB PO SCH (08:00)
[2022-07-02] MEDS: Piperacillin/Tazobactam 3.375 GM in Sodium Chloride 0.9% 100 ML IVPB SCH ×3 (04:28→20:23)
[2022-07-02 05:05] LABS: #Eosinphils 0.2 thou/uL (0.0-0.7); #Lymphocytes 1.1 thou/uL (1.20-3.40); #Monocytes 0.6 thou/uL (0.11-0.59); #Neutrophils 3.9 thou/uL (1.40-6.50); %Basophils 0.3 % (0.0-1.0); %Eosinophils 3.3 % (0.0-10.0); %Lymphocytes 18.3 % (21.0-51.0); %Monocytes 9.5 % (0.0-10.0); %Neutrophils 68.5 % (42.0-75.0); Hemoglobin 13.2 g/dL (14.0-18.0); Mean Corpuscular Hemoglobin 34.2 pg (27.0-31.0); Mean Platelet Volume 8.1 fL (7.4-10.4); Platelet Count 258 10x3/uL (130-400); RBC Distribution Width 11.1 % (11.5-14.5); Red Blood Cell (RBC) Count 3.85 mill/uL (4.70-6.10); White Blood Cell (WBC) Count 5.8 10x3/uL (4.8-10.8)
[2022-07-02 05:41] LABS: Anion Gap 13 mmol/L (10-20); BUN (Urea Nitrogen) 5 mg/dL (8.4-25.7); Calc. Creatinine Clearance 97 mL/min (70-130); Carbon Dioxide 22 mmol/L (23-31); Chloride 106 mmol/L (98-107); Estimated GFR 101; Glucose 90 mg/dL (80-115); Potassium 3.8 mmol/L (3.5-5.1); Sodium 137 mmol/L (136-145)
[2022-07-02] MEDS: Metoprolol Tartrate 25 MG TAB PO SCH ×2 (09:13→20:21)
[2022-07-02] MEDS: Digoxin 0.25 MG TAB PO SCH (09:14)
[2022-07-02] MEDS: Amiodarone 450 MG in Dextrose 5% in Water 250 ML IVPB SCH (10:04)
[2022-07-02] MEDS ORDERED: Dronedarone HCl 400 MG TAB PO SCH (10:15)
[2022-07-02] MEDS: Dronedarone HCl 400 MG TAB PO SCH (18:31)
[2022-07-02] MEDS: Apixaban 5 MG TAB PO SCH (20:22)
[2022-07-03] MEDS: Piperacillin/Tazobactam 3.375 GM in Sodium Chloride 0.9% 100 ML IVPB SCH ×2 (04:10→11:41)
[2022-07-03 05:39] LABS: Anion Gap 14 mmol/L (10-20); BUN (Urea Nitrogen) 6 mg/dL (8.4-25.7); Calc. Creatinine Clearance 98 mL/min (70-130); Calcium 9.2 mg/dL (7.8-10.44); Carbon Dioxide 22 mmol/L (23-31); Chloride 106 mmol/L (98-107); Estimated GFR 102; Glucose 87 mg/dL (80-115); Potassium 3.7 mmol/L (3.5-5.1); Sodium 138 mmol/L (136-145)
[2022-07-03] MEDS: Dronedarone HCl 400 MG TAB PO SCH ×2 (08:02→16:54)
[2022-07-03] MEDS: Apixaban 5 MG TAB PO SCH (08:02)
[2022-07-03] MEDS: Metoprolol Tartrate 25 MG TAB PO SCH (08:02)
[2022-07-03] MEDS ORDERED: Digoxin 0.125 MG TAB PO SCH (09:00)
[2022-07-03] MEDS ORDERED: Magnesium 2 GM/50 ML(in water) 2 GM in Premix Bag 1 BAG IVPB SCH (09:00)
[2022-07-03 16:57] VITALS: BP 126/66; TEMP 97.9
== END 2022-07-03 20:06 | disposition home or self-care (01) | DRG 872 ==
LOC: ERS 09:17 → ERHOLD 12:46 → IMCU/EMU 17:00 → 2NO 06-29 17:26
PROVIDERS: ADMIT Family Medicine; ATTEND Family Medicine
DX: A41.51 Sepsis due to Escherichia coli [E. coli] (principal); N32.1 Vesicointestinal fistula; N39.0 Urinary tract infection, site not specified; K57.32 Diverticulitis of large intestine without perforation or abscess without bleeding; I48.91 Unspecified atrial fibrillation; F12.10 Cannabis abuse, uncomplicated; E87.6 Hypokalemia; I10 Essential (primary) hypertension; E78.5 Hyperlipidemia, unspecified; N40.0 Benign prostatic hyperplasia without lower urinary tract symptoms; Z87.19 Personal history of other diseases of the digestive system; Z79.899 Other long term (current) drug therapy; Z98.890 Other specified postprocedural states; Z82.49 Family history of ischemic heart disease and other diseases of the circulatory system
CPT/HCPCS: 36415; 36416; 71045; 74177; 80048; 80053; 81003; 81015; 83605; 83690; 83735; 83880; 84484; 85025; 87040; 87077; 87086; 87186; 93005; 94760; 96365; 96366; 96367; 96375; J0282; J0692; J1160; J1650; J2543; J3370-JW; J3475; J3490; J7050; J7070; Q9967

== ENCOUNTER 2022-07-18 08:50 | Day surgery (SDC) | payer MEDICARE ==
[2022-07-15 09:50] VITALS: BMI 24.0
== END 2022-07-18 10:35 | disposition home or self-care (01) ==
LOC: SDC 08:50
PROVIDERS: ATTEND Internal Medicine Cardiovascular Disease
DX: I48.0 Paroxysmal atrial fibrillation (principal); R00.1 Bradycardia, unspecified; N40.0 Benign prostatic hyperplasia without lower urinary tract symptoms; I10 Essential (primary) hypertension; Z53.9 Procedure and treatment not carried out, unspecified reason; Z79.01 Long term (current) use of anticoagulants; Z79.899 Other long term (current) drug therapy
CPT/HCPCS: 93005; 93010

== ENCOUNTER 2022-11-07 10:00 | Outpatient (CLI) | payer MEDICARE ==
[2022-11-07 11:55] LABS: #Basophils 0.1 10x3/uL (0.0-0.2); #Eosinphils 0.2 10x3/uL (0.0-0.5); #Monocytes 0.6 10x3/uL (0.0-1.1); #Neutrophils 7.1 10x3/uL (1.5-8.4); %Basophils 0.6 % (0.0-2.0); %Eosinophils 2.2 % (0.0-6.0); %Lymphocytes 15.4 % (18.0-47.0); %Monocytes 6.1 % (0.0-10.0); %Neutrophils 75.4 % (40.0-75.0); Hematocrit 43.1 % (38.8-50.0); Hemoglobin 14.7 g/dL (13.5-17.5); Mean Corpuscular HGB CONC 34.1 g/dL (32.0-36.0); Mean Corpuscular Hemoglobin 31.7 pg (27.0-33.0); Mean Corpuscular Volume 92.9 fl (81.2-95.1); Mean Platelet Volume 10.7 fl (7.4-10.4); Platelet Count 264 10x3/uL (150-450); RBC Distribution Width 11.7 % (11.5-14.5); Red Blood Cell (RBC) Count 4.64 10x6/uL (4.32-5.72); White Blood Cell (WBC) Count 9.4 10x3/uL (3.5-10.5)
[2022-11-07 12:37] LABS: Anion Gap 17 mmol/L (10-20); BUN (Urea Nitrogen) 7 mg/dL (8.4-25.7); Calc. Creatinine Clearance 0 mL/min (70-130); Calcium 9.3 mg/dL (7.8-10.44); Carbon Dioxide 24 mmol/L (23-31); Chloride 103 mmol/L (98-107); Estimated GFR 96; Glucose 90 mg/dL (80-115); Potassium 4.5 mmol/L (3.5-5.1); Sodium 139 mmol/L (136-145)
== END 2022-11-07 10:01 | disposition home or self-care (01) ==
LOC: LABBT 10:00
PROVIDERS: ATTEND Surgery
DX: Z01.818 Encounter for other preprocedural examination (principal); K57.32 Diverticulitis of large intestine without perforation or abscess without bleeding
CPT/HCPCS: 80048; 83036; 85025; 93005; 93010

== ENCOUNTER 2022-12-28 13:08 | Outpatient (CLI) | payer MEDICARE ==
[~2022-12-28 13:08] MED LIST: MD-Gastroview 120 ML BOT ONE
== END 2022-12-28 13:09 | disposition home or self-care (01) ==
LOC: RAD 13:08
PROVIDERS: ATTEND Surgery
DX: Z48.815 Encounter for surgical aftercare following surgery on the digestive system (principal); Z93.2 Ileostomy status; K57.30 Diverticulosis of large intestine without perforation or abscess without bleeding
CPT/HCPCS: 74280; Q9963

== ENCOUNTER 2023-01-02 14:00 | Inpatient (IN) | payer MEDICARE ==
[2023-01-02 14:07] VITALS: BMI 25.4
[2023-01-04] MEDS ORDERED: Midazolam HCl 2 mg/2 ml Vial ONE (13:55)
[2023-01-04] MEDS ORDERED: fentaNYL 50 mcg/mL 1 mL Vial ONE (13:55)
[2023-01-04] MEDS ORDERED: cefOXitin 2 GM VIAL ONE (14:35)
[2023-01-04] MEDS ORDERED: Sodium Chloride 0.9% 100 ML ONE (14:35)
[2023-01-04] MEDS ORDERED: fentaNYL PF 100 MCG/2 ML SYRINGE ONE ×2 (14:38→16:22)
[2023-01-04] MEDS ORDERED: Ondansetron PF 4 MG/2 ML Vial ONE (14:47)
[2023-01-04] MEDS ORDERED: NEOSTIGMINE 3 MG/3 ML SYR 3 MG/3 ML SYRINGE ONE (14:47)
[2023-01-04] MEDS ORDERED: Lidocaine 1% PF 5 ML VIAL ONE (14:47)
[2023-01-04] MEDS ORDERED: Glycopyrrolate 0.2 MG/ML 5 ML SYRINGE ONE (14:47)
[2023-01-04] MEDS ORDERED: PROPOFOL 200 MG/20 ML VIAL ONE (14:47)
[2023-01-04] MEDS ORDERED: Rocuronium Bromide 10 MG/ML (10ML VIAL) ONE (14:47)
[2023-01-04] MEDS ORDERED: Ondansetron HCl/PF 4 MG/2 ML Vial IVP PRN (15:55)
[2023-01-04] MEDS ORDERED: Promethazine HCl 25 MG/ML VIAL IM PRN ×2 (15:55→16:00)
[2023-01-04] MEDS ORDERED: Morphine 2 MG/ML VIAL SLOW IVP PRN (16:00)
[2023-01-04] MEDS ORDERED: Ondansetron PF 4 MG/2 ML Vial IVP PRN (16:00)
[2023-01-04] MEDS ORDERED: Glucagon 1 MG/ML KIT IM PRN (16:00)
[2023-01-04] MEDS ORDERED: hydrALAZINE 20 MG/ML VIAL SLOW IVP PRN (16:00)
[2023-01-04] MEDS ORDERED: Dextrose 50% Abboject 50 ML SYRINGE SLOW IVP PRN (16:00)
[2023-01-04] MEDS ORDERED: Acetaminophen 325 MG TAB PO PRN (16:00)
[2023-01-04] MEDS ORDERED: Dextrose 5% in Water 1,000 ML IV PRN (16:00)
[2023-01-04] MEDS ORDERED: Morphine 4 MG/ML VIAL SLOW IVP PRN (16:00)
[2023-01-04] MEDS ORDERED: Ipratropium/Albuterol 3 ML NEB NEB PRN (16:00)
[2023-01-04] MEDS: Dronedarone HCl 400 MG TAB PO SCH ×2 (17:41→19:57)
[2023-01-04] MEDS: Sodium Chloride 0.9% 1,000 ML IV SCH ×2 (17:41→19:53)
[2023-01-04] MEDS: Famotidine 20 MG TAB PO SCH (19:46)
[2023-01-04] MEDS: Metoprolol Tartrate 25 MG TAB PO SCH (19:53)
[2023-01-04] MEDS: HYDROcodone/Acetaminophen 7.5/325 mg Tablet PO PRN (19:53)
[2023-01-04] MEDS: Famotidine/PF 20 mg/2ml Vial SLOW IVP SCH (19:54)
[2023-01-05] MEDS: HYDROcodone/Acetaminophen 7.5/325 mg Tablet PO PRN ×2 (05:38→16:24)
[2023-01-05 05:59] LABS: #Eosinphils 0.1 thou/uL (0.0-0.7); #Monocytes 0.8 thou/uL (0.11-0.59); #Neutrophils 7.8 thou/uL (1.40-6.50); %Basophils 0.3 % (0.0-1.0); %Eosinophils 1.3 % (0.0-10.0); %Lymphocytes 9.8 % (21.0-51.0); %Monocytes 7.9 % (0.0-10.0); %Neutrophils 80.3 % (42.0-75.0); Hematocrit 36.9 % (42.0-52.0); Hemoglobin 12.3 g/dL (14.0-18.0); Mean Corpuscular HGB CONC 33.3 g/dL (32.0-36.0); Mean Corpuscular Hemoglobin 31.1 pg (27.0-31.0); Mean Corpuscular Volume 93.2 fl (78.0-98.0); Mean Platelet Volume 10.5 fL (7.4-10.4); Platelet Count 209 10x3/uL (130-400); Red Blood Cell (RBC) Count 3.96 mill/uL (4.70-6.10); White Blood Cell (WBC) Count 9.7 10x3/uL (4.8-10.8)
[2023-01-05 06:25] LABS: Anion Gap 10 mmol/L (10-20); BUN (Urea Nitrogen) 7 mg/dL (8.4-25.7); Calc. Creatinine Clearance 99 mL/min (70-130); Calcium 8.8 mg/dL (7.8-10.44); Carbon Dioxide 26 mmol/L (23-31); Chloride 102 mmol/L (98-107); Estimated GFR 101; Glucose 96 mg/dL (80-115); Potassium 3.8 mmol/L (3.5-5.1); Sodium 134 mmol/L (136-145)
[2023-01-05] MEDS ORDERED: FLU VACC QS2023(65UP)/MF59C/PF 60 MCG/0.5 ML SYRINGE IM ONE (09:00)
[2023-01-05] MEDS: Dronedarone HCl 400 MG TAB PO SCH ×2 (09:38→16:26)
[2023-01-05] MEDS: Famotidine 20 MG TAB PO SCH (09:38)
[2023-01-05] MEDS: Metoprolol Tartrate 25 MG TAB PO SCH (09:39)
[2023-01-05] MEDS: Famotidine/PF 20 mg/2ml Vial SLOW IVP SCH (09:39)
[2023-01-05] MEDS: Sodium Chloride 0.9% 1,000 ML IV SCH (12:26)
[2023-01-05 15:42] VITALS: BP 105/59; TEMP 97.4
== END 2023-01-05 17:00 | disposition home or self-care (01) | DRG 331 ==
LOC: SURG A 01-04 09:20
PROVIDERS: ADMIT Surgery; ATTEND Surgery
PROC: 0DSB0ZZ Reposition Ileum, Open Approach (ICD-10-PCS; principal; 2023-01-04)
DX: Z43.2 Encounter for attention to ileostomy (principal); Z79.899 Other long term (current) drug therapy; Z79.01 Long term (current) use of anticoagulants; G47.00 Insomnia, unspecified; Z98.890 Other specified postprocedural states; Z82.49 Family history of ischemic heart disease and other diseases of the circulatory system; E78.1 Pure hyperglyceridemia
CPT/HCPCS: 36415; 80048; 85025; 90471; 90694; A4314; A4649; G0008; J0694; J1650; J2250; J2405; J2704; J3010; J3490; J7050; S0028

== ENCOUNTER 2023-08-07 06:15 | Day surgery (SDC) | payer MEDICARE ==
[2023-08-02 12:23] VITALS: BMI 29.9
[2023-08-02 13:03] LABS: Hematocrit 43.1 % (38.8-50.0); Hemoglobin 15.5 g/dL (13.5-17.5); Mean Corpuscular Hemoglobin 32.2 pg (27.0-33.0); Mean Corpuscular Volume 89.6 fl (81.2-95.1); Mean Platelet Volume 10.5 fl (7.4-10.4); Platelet Count 252 10x3/uL (150-450); RBC Distribution Width 12.2 % (11.5-14.5); Red Blood Cell (RBC) Count 4.81 10x6/uL (4.32-5.72); White Blood Cell (WBC) Count 6.3 10x3/uL (3.5-10.5)
[2023-08-02 13:15] LABS: PTT 29.1 sec (22.0-33.0); Prothrombin Time 10.5 sec (9.5-12.1)
[2023-08-02 13:23] LABS: Anion Gap 13 mmol/L (10-20); BUN (Urea Nitrogen) 9 mg/dL (8.4-25.7); Calc. Creatinine Clearance 100 mL/min (70-130); Carbon Dioxide 27 mmol/L (23-31); Chloride 105 mmol/L (98-107); Estimated GFR 96; Glucose 104 mg/dL (80-115); Potassium 4.4 mmol/L (3.5-5.1); Sodium 141 mmol/L (136-145)
[2023-08-07] MEDS ORDERED: Protamine Sulfate 50 MG/5 ML VIAL ONE (06:54)
[2023-08-07] MEDS ORDERED: Heparin 10,000 UNITS/ 10 ML VIAL ONE (06:54)
[2023-08-07] MEDS ORDERED: Isoproterenol 0.2 MG/1 ML AMP ONE ×2 (06:55→09:51)
[2023-08-07] MEDS ORDERED: Heparin 25,000 units/D5W 500 ML ONE (06:55)
[2023-08-07] MEDS ORDERED: PROPOFOL 200 MG/20 ML VIAL ONE (08:55)
[2023-08-07] MEDS ORDERED: Dexamethasone 20 MG/5 ML VIAL ONE (08:55)
[2023-08-07] MEDS ORDERED: Rocuronium Bromide 10 MG/ML (10ML VIAL) ONE (08:55)
[2023-08-07] MEDS ORDERED: Lidocaine 1% PF 5 ML VIAL ONE (08:55)
[2023-08-07] MEDS ORDERED: Ondansetron PF 4 MG/2 ML Vial ONE (08:55)
[2023-08-07] MEDS ORDERED: PHENYLEPHRINE-NS 100 MCG/ML 10 ML SYRINGE ONE (08:55)
[2023-08-07] MEDS ORDERED: Calcium Chloride 1 GM/10 ML Abboject SYRINGE ONE (08:55)
[2023-08-07] MEDS ORDERED: Midazolam HCl 2 mg/2 ml Vial ONE (09:12)
[2023-08-07] MEDS ORDERED: fentaNYL 50 mcg/mL 1 mL Vial ONE ×2 (09:12→11:08)
[2023-08-07] MEDS ORDERED: SUGAMMADEX SODIUM 200 MG/2 ML VIAL ONE (09:53)
== END 2023-08-07 14:30 | disposition home or self-care (01) ==
LOC: SDC 06:15
PROVIDERS: ATTEND Internal Medicine Cardiovascular Disease
PROC: 02583ZZ Destruction of Conduction Mechanism, Percutaneous Approach (ICD-10-PCS; principal; 2023-08-07)
PROC: 4A027FZ Measurement of Cardiac Rhythm, Via Natural or Artificial Opening (ICD-10-PCS; 2023-08-07)
PROC: 4A0274Z Measurement of Cardiac Electrical Activity, Via Natural or Artificial Opening (ICD-10-PCS; 2023-08-07)
DX: I48.19 Other persistent atrial fibrillation (principal); I49.5 Sick sinus syndrome; I10 Essential (primary) hypertension; Z79.01 Long term (current) use of anticoagulants; Z87.19 Personal history of other diseases of the digestive system; Z90.49 Acquired absence of other specified parts of digestive tract; Z98.890 Other specified postprocedural states
CPT/HCPCS: 80048; 85027; 85347 ×2; 85610; 85730; 93005; 93622; 93623; 93656; 93657; C1732 ×2; C1759; C1760; C1894; J3010; 93010; J1100; J1644; J2250; J2405; J2704; J2720

== ENCOUNTER 2023-12-25 02:15 | Emergency (ER) | payer MEDICARE ==
[2023-12-25] MEDS ORDERED: Dexamethasone 10 MG/ML VIAL ONE (03:48)
== END 2023-12-25 04:10 | disposition home or self-care (01) ==
LOC: ERS 02:15
DX: J06.9 Acute upper respiratory infection, unspecified (principal); I10 Essential (primary) hypertension
CPT/HCPCS: 71045; 87428; J1100